=== PATIENT | female | born 2000 | race Caucasian/White ===

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

== ENCOUNTER 2021-01-08 11:21 | Outpatient (REF) | payer OTHER, SELFPAY ==
[2021-01-10 13:26] LABS: Chlamydia Result Negative (Negative); GC Result Negative (Negative)
== END 2021-01-08 11:22 | disposition home or self-care (01) ==
LOC: LBN 11:21
PROVIDERS: PCP Nurse Practitioner Pediatrics; Visit Provider Nurse Practitioner Family
DX: Z11.3 Encounter for screening for infections with a predominantly sexual mode of transmission (principal)
CPT/HCPCS: 87491; 87591

== ENCOUNTER 2021-01-13 11:39 | Outpatient (REF) | payer OTHER, SELFPAY ==
[2021-01-16 08:53] LABS: COVID-19 RT-PCR UVMMC Result Negative (Negative)
== END 2021-01-13 11:40 | disposition home or self-care (01) ==
LOC: LBN 11:39
PROVIDERS: PCP Nurse Practitioner Pediatrics; Visit Provider Physician Assistant Medical
DX: Z20.822 Contact with and (suspected) exposure to COVID-19 (principal); R05 Cough
CPT/HCPCS: U0003

== ENCOUNTER 2021-02-19 18:39 | Outpatient (REF) | payer OTHER, SELFPAY ==
[2021-02-21 15:06] LABS: Chlamydia Result Negative (Negative); GC Result Negative (Negative)
== END 2021-02-19 18:40 | disposition home or self-care (01) ==
LOC: LBN 18:39
PROVIDERS: PCP Nurse Practitioner Pediatrics; Visit Provider Nurse Practitioner Pediatrics
DX: Z11.3 Encounter for screening for infections with a predominantly sexual mode of transmission (principal)
CPT/HCPCS: 87491; 87591

== ENCOUNTER 2022-07-04 16:15 | Outpatient (REF) | payer OTHER, SELFPAY ==
[2022-07-06 13:35] LABS: Chlamydia Result Negative (Negative); GC Result Negative (Negative)
== END 2022-07-04 16:16 | disposition home or self-care (01) ==
LOC: LBN 16:15
PROVIDERS: PCP Nurse Practitioner Pediatrics; Referring Provider Nurse Practitioner Pediatrics; Visit Provider Nurse Practitioner Pediatrics
DX: Z11.3 Encounter for screening for infections with a predominantly sexual mode of transmission (principal)
CPT/HCPCS: 87491; 87591